=== PATIENT | male | born 1945 | race Caucasian/White ===

== ENCOUNTER 2017-06-30 17:41 | Inpatient (IN) | payer OTHER, BC ==
[2017-06-30 18:06] VITALS: BMI 27.4
[2017-06-30] MEDS ORDERED: morphine CARPU-JECT 4 MG/1 ML DISP.SYRIN IVPUSH ONE (18:47)
--- NOTE | 2017-06-30 18:54 | PDOC ---
History of Present Illness <Jose Angel Smith - Last Filed: 06/30/17 20:11> - History of Present Illness Initial Comments: 06/30/17 19:57 The patient is a 72 year old male with a history of spelectomy, prostate resection who presents for evaluation of right sided flank pain and shoulder pain. The patient reports sudden onset of sharp right sided flank pain with radiation into the right shoulder earlier today. He reports some SOB secondary to pain with deep inspiration. He states that he recently had a laporoscopy to remove his prostate 1 week ago. He otherwise denies fevers, chills, chest pain , abdominal pain, nausea, vomiting, or changes with bowel movements. <Rudolph Morales - Last Filed: 06/30/17 23:20> - General Chief Complaint: Chest Pain Stated Complaint: CHEST PAIN Time Seen by Provider: 06/30/17 18:39 Past History <Jose Angel Smith - Last Filed: 06/30/17 20:11> - Past Medical History Anemia: No Asthma: No Cancer: No Cardiac Disorders: No Diabetes: No Disorders: No HTN: No - Surgical History Abdominal Surgery: Yes (Spleenectomy) GI Surgery: Yes (Spleentomy) - Suicide/Smoking/Psychosocial Hx Smoking Status: No Smoking History: Never smoked Have you smoked in the past 12 months: No Number of Cigarettes Smoked Daily: 0 Hx Alcohol Use: No Drug/Substance Use Hx: No Substance Use Type: None Hx Substance Use Treatment: No <CarmenRudolph - Last Filed: 06/30/17 23:20> - Past Medical History Allergies/Adverse Reactions: Allergies Allergy/AdvReac Type Severity Reaction Status Date / Time Penicillins Allergy Verified 06/30/17 18:02 Home Medications: Ambulatory Orders No Home Medications 0 dose .ROUTE UTDICT 01/29/12 Acetaminophen [Tylenol .Regular Strength -] 650 mg PO Q4H PRN #0 tablet Review of Systems - Review of Systems Comments:: 06/30/17 20:04 Constitutional: No fevers, chills, fatigue, malaise HEENT: No Rhinorrhea, nasal congestion, visual changes Cardiovascular: No chest pain, syncope, palpitations, lightheadedness Respiratory: SOB. No Cough, Hemoptysis, Gastrointestinal: No Abdominal pain, Nausea, Vomiting, Constipation, Diarrhea, Melena Genitourinary: No Dysuria, Frequency, Urgency, Hesitancy, Hematuria, Flank pain Musculoskeletal: Right sided flank pain and shoulder pain. No Myalgia, arthralgia Skin: No rashes, itching, bruising, pallor Neurologic: No Headache, Dizziness, Numbness, Weakness, or Tingling Psychiatric: No Hallucinations. No SI or HI <Rudolph Morales - Last Filed: 06/30/17 23:20> *Physical Exam - Vital Signs Last Vital Signs Temp Pulse Resp BP Pulse Ox 99.1 F 84 19 146/82 97 06/30/17 18:03 06/30/17 18:03 06/30/17 18:03 06/30/17 18:03 06/30/17 18:03 <Jose Angel Smith - Last Filed: 06/30/17 20:11> - Vital Signs Last Vital Signs Temp Pulse Resp BP Pulse Ox 99.1 F 84 19 146/82 97 06/30/17 18:03 06/30/17 18:03 06/30/17 18:03 06/30/17 18:03 06/30/17 18:03 - Physical Exam Comments: 06/30/17 20:06 General Appearance: Nourished. No Apparent Distress HEENT: EOMI, IBAN. No Pharyngeal Erythema, Tonsillar Exudate, Tonsillar Erythema Neck: No Cervical Lymphadenopathy Respiratory/Chest: Tenderness to light touch along the skin of the right flank. Lungs Clear, Normal Breath Sounds. No Crackles, Rales, Rhonchi, Wheezing Cardiovascular: Regular Rhythm, Regular Rate. No Murmur, Gallops, Rubs Gastrointestinal/Abdominal: Normal Bowel Sounds. Well healing laperoscopy surgical scars. No Guarding, Rebound, Tenderness Musculoskeletal: No CVA Tenderness Extremity: Normal Capillary Refill Integumentary: Normal Color, Dry, Warm Neurologic: Fully Oriented, Alert, Normal Mood/Affect, Normal Response, <Rudolph Morales - Last Filed: 06/30/17 23:20> Heart Score/ECG Review #1 ECG reviewed & interpreted by me at: 21:29 General ECG Interpretation: Sinus Rhythm, Normal Rate, Normal Intervals, No acute ischemic changes <Rudolph Morales - Last Filed: 06/30/17 23:20> ED Treatment Course - LABORATORY CBC & Chemistry Diagram: 02/16/18 19:05 06/30/17 19:05 <SarahJose Angel - Last Filed: 06/30/17 20:11> - LABORATORY CBC & Chemistry Diagram: 06/30/17 19:05 06/30/17 19:05 <Rudolph Morales - Last Filed: 06/30/17 23:20> Medical Decision Making - Medical Decision Making 06/30/17 20:09 The patient is a 72 year old male with a history of spelectomy, prostate resection who presents for evaluation of right sided flank pain and shoulder pain. Differential includes but is not limited to: Cholecystits, PE, Pneumonia , Shingles, Musculoskeletal, infectious, metabolic derangement. Given the patient's recent surgery, the patient is at a high risk for PE and we will obtain a cbc, cmp, troponin, chest plain film, CTA of the chest to evaluate further. We will continue to monitor and reassess. 06/30/17 23:18 CBC, cmp, troponin, chest plain film are unremarkable. CTA of the chest demonstrates a small segmental PE in the right lower lobe as read by our radiologist. We will obtain a dvt US of the patient's lower extremities and start the patient on lovenox. The patient will require admission for further management. We discussed the case with the hospitalist team who accepted the patient for admission. <Rudolph Morales - Last Filed: 06/30/17 23:20> *DC/Admit/Observation/Transfer <SarahJose Angel - Last Filed: 06/30/17 20:11> - Discharge Dispostion Admit: Yes <Rudolph Morales - Last Filed: 06/30/17 23:20> Diagnosis at time of Disposition: Pulmonary embolism Qualifiers: Pulmonary embolism type: other Chronicity: acute Acute cor pulmonale presence: without acute cor pulmonale Qualified Code(s): I26.99 - Other pulmonary embolism without acute cor pulmonale - Discharge Dispostion Condition at time of disposition: Guarded - Referrals Referrals: Nahum Khan MD [Primary Care Provider] -
[2017-06-30 19:14] LABS: BASO % 0.5 % (0-2.0); EOS % 2.2 % (0-4.5); HEMATOCRIT 38.2 % (35.4-49); LYMPH % 11.5 % (8-40); MCH 31.7 pg (25.7-33.7); MCHC 34.2 g/dl (32.0-35.9); MEAN CELL VOLUME 92.7 fl (80-96); MEAN PLT VOLUME 8.3 fl (7.5-11.1); NEUT % 79.8 % (42.8-82.8); PLATELET COUNT 181 K/MM3 (134-434); RBC 4.12 M/mm3 (4.00-5.60); RDW 12.8 % (11.9-15.9); WHITE BLOOD COUNT 8.3 K/mm3 (4.0-10.0)
[2017-06-30] MEDS ORDERED: MORPHINE SULFATE 10 MG/1 ML *VIAL ONE (19:17)
[2017-06-30 19:44] LABS: ALBUMIN 2.4 g/dl (3.4-5.0); ANION GAP 10 (8-16); BILIRUBIN,TOTAL 0.5 mg/dL (0.2-1.0); BLOOD UREA NITROGEN 17 mg/dL (7-18); CHLORIDE 119 mmol/L (98-107); CO2 19 mmol/L (21-32); CREATININE 0.5 mg/dL (0.7-1.3); GLUCOSE,RANDOM 74 mg/dL (74-106); LIPASE 158 U/L (73-393); SGPT/ALT 19 U/L (12-78); SODIUM 148 mmol/L (136-145); TOT PROT 4.8 g/dl (6.4-8.2)
[2017-06-30 19:46] LABS: ALK PHOS 54 U/L (45-117)
[2017-06-30 19:51] LABS: CALCIUM 5.8 mg/dL (8.5-10.1); POTASSIUM 3.4 mmol/L (3.5-5.1)
[2017-06-30 19:52] LABS: SGOT/AST 20 U/L (15-37)
--- NOTE | 2017-06-30 20:10 | PDOC ---
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 Pain worse with deep inspiration. He denies any modifying factors. He notes that his shortness of breath is associated with his pain. The patient denies chest pain, headache and dizziness. Denies fever, chills, nausea, vomit, diarrhea and constipation. Denies dysuria, frequency, urgency and hematuria. Allergies: Penicillin Past surgical history: Splenectomy Social history: No alcohol, tobacco ot drug use reported - Physicial Exam PE: 06/30/17 21:47 "GENERAL: Awake, alert, and fully oriented, in no acute distress HEAD: No signs of trauma EYES: PERRLA, EOMI, sclera anicteric, conjunctiva clear ENT: Auricles normal inspection, hearing grossly normal, nares patent, oropharynx clear without exudates. Moist mucosa NECK: Normal ROM, supple, no lymphadenopathy, JVD, or masses LUNGS: Breath sounds equal, clear to auscultation bilaterally. No wheezes, and no crackles HEART: Regular rate and rhythm, normal S1 and S2, no murmurs, rubs or gallops ABDOMEN: Soft, nontender, normoactive bowel sounds. No guarding, no rebound. No masses EXTREMITIES: Normal range of motion, no edema. No clubbing or cyanosis. No cords, erythema, or tenderness BACK: No midline spinal tenderness in cervical/thoracic/lumbar region NEUROLOGICAL: Normal speech, cranial nerves intact, negative pronator drift, 5/ 5 strength in all 4 extremities, normal sensation to light touch in all 4 extremities, normal cerebellar exam, normal gait, normal reflexes and tone MSK: exquisite ttp along R lower ribs to light touch, no rash visible over tender area SKIN: Warm, Dry, normal turgor, no rashes or lesions noted. " <Asim Knott - Last Filed: 06/30/17 21:47> - Resident Resident Name: Rudolph Morales - ED Attending Attestation I have performed the following: I have examined & evaluated the patient, The case was reviewed & discussed with the resident, I agree w/resident's findings & plan, Exceptions are as noted - Medical Decision Making 06/30/17 19:10 72-year-old male with multiple medical problems including prostate cancer status post recent prostatectomy presents the emergency department with sudden onset right upper back pain radiating to the right shoulder that is pleuritic in nature. EKG nonischemic. Vitals are unremarkable. Exam with reproducible back pain. Patient is high risk for pulmonary embolism and thus we'll obtain labs including CMP and obtain a CTA of the chest. We'll also obtain cardiac enzymes and likely admit. 06/30/17 22:39 CTA with subsegmental pulmonary embolism on the right. CT scan of the head obtained to rule out metastatic disease prior to anticoagulation. Pt is HDS. Patient has been admitted to the hospitalist for further management. Signout given to Dr. Montoya. Case discussed in detail with admitting physician including history, physical exam and ancillary studies. Admitting physician has assumed care for the patient, will follow all pending diagnostics and will complete the evaluation and treatment. <Jose Angel Smith - Last Filed: 07/01/17 02:40>
[2017-06-30] MEDS ORDERED: ENOXAPARIN NA (PORCINE) 80 MG/0.8 ML DISP.SYRIN SQ SCH (22:30)
[2017-06-30 22:34] LABS: URINE APPEARANCE SLCLOUDY; URINE BILIRUBIN NEGATIVE (NEGATIVE); URINE BLOOD 3+ (NEGATIVE); URINE COLOR YELLOW; URINE GLUCOSE (UA) NEGATIVE (NEGATIVE); URINE KETONE 1+ (NEGATIVE); URINE NITRITE NEGATIVE (NEGATIVE); URINE UROBILINOGEN NEGATIVE mg/dL (0.2-1.0)
[2017-06-30 22:35] LABS: URINE LEUK ESTERASE 3+ (NEGATIVE); URINE PROTEIN 1+ (NEGATIVE)
[2017-06-30 22:38] LABS: EPI CELLS RARE /HPF (FEW)
[2017-06-30 22:39] LABS: URINE CRYSTALS FEW /hpf (NONE SEEN); URINE HYALINE CAST 5 /lpf
[2017-06-30 22:41] LABS: GRANULAR CASTS 3 /lpf; URINE MUCUS MANY
[2017-06-30] MEDS ORDERED: ENOXAPARIN NA (PORCINE) 80 MG/0.8 ML DISP.SYRIN SQ ONE (23:50)
[2017-07-01] MEDS: morphine CARPU-JECT 2 MG/1 ML DISP.SYRIN IVPUSH PRN ×2 (01:01→07:12)
[2017-07-01] MEDS ORDERED: CALCIUM CARBONATE 650 MG TABLET PO ONE (01:29)
[2017-07-01] MEDS ORDERED: SODIUM CHLORIDE 1,000 ML IV SCH (01:30)
[2017-07-01] MEDS ORDERED: POTASSIUM CHLORIDE TABS 20 MEQ TABLET.ER (FP) PO ONE ×2 (01:30→02:15)
--- NOTE | 2017-07-01 01:47 | HP ---
CHIEF COMPLAINT: back pain HISTORY OF PRESENT ILLNESS: 72 year old, Vietnamese speaking male with a history of recent prostate cancer diagnosis s/p prostatectomy 2 weeks ago done by an anterior abdominal approach presents to the hospital for pain in his flank since 5pm today. He states that the pain is located on the right side, mid-thoracic region mid axillary line and wraps around to the back. He states that it is 10/10 in severity and that it is worse on inhalation. He denies shortness of breath, but states that it is hard for him to take a deep breath due to pain. He states that a few days ago he had a sharp pain in his R groin that alleviated on its own. He states that he had a catheter to help him urinate just removed and that he has some mild dysuria at the end of his stream. Patient is not on any medications - but his urologist recently prescribed him ciprofloxacin and cialis, which he does not take. ER course was notable for: (1) Hypocalcemia (2) Hypernatremia (3) CTA -> R lower lobe medial segment pulmonary embolus Recent Travel: none PAST MEDICAL HISTORY: prostate CA PAST SURGICAL HISTORY: prostatectomy Social History: Smoking: none Alcohol: none Drugs: none Family History: Allergies Penicillins Allergy (Verified 06/30/17 18:02) HOME MEDICATIONS: Home Medications Medication Instructions Recorded No Home Medications 0 dose .ROUTE UTDICT 01/29/12 Acetaminophen [Tylenol .Regular 650 mg PO Q4H PRN #0 tablet 01/30/12 Strength -] REVIEW OF SYSTEMS CONSTITUTIONAL: Absent: fever, chills, diaphoresis, generalized weakness, malaise, loss of appetite, weight change HEENT: Absent: rhinorrhea, nasal congestion, throat pain, throat swelling, difficulty swallowing, mouth swelling, ear pain, eye pain, visual changes CARDIOVASCULAR: Absent: chest pain, syncope, palpitations, irregular heart rate, lightheadedness , peripheral edema RESPIRATORY: Absent: cough, shortness of breath, dyspnea with exertion, orthopnea, wheezing, stridor, hemoptysis GASTROINTESTINAL: abdominal distension Absent: abdominal pain, , nausea, vomiting, diarrhea, constipation, melena, hematochezia GENITOURINARY: dysuria Absent: frequency, urgency, hesitancy, hematuria, flank pain, genital pain MUSCULOSKELETAL: back pain, Absent: myalgia, arthralgia, joint swelling, neck pain SKIN: Absent: rash, itching, pallor HEMATOLOGIC/IMMUNOLOGIC: Absent: easy bleeding, easy bruising, lymphadenopathy, frequent infections ENDOCRINE: Absent: unexplained weight gain, unexplained weight loss, heat intolerance, cold intolerance NEUROLOGIC: Absent: headache, focal weakness or paresthesias, dizziness, unsteady gait, seizure, mental status changes, bladder or bowel incontinence PSYCHIATRIC: Absent: anxiety, depression, suicidal or homicidal ideation, hallucinations. PHYSICAL EXAMINATION Vital Signs - 24 hr 06/30/17 18:03 Temperature 99.1 F Pulse Rate 84 Respiratory 19 Rate Blood Pressure 146/82 O2 Sat by Pulse 97 Oximetry (%) GENERAL: Awake, alert, and fully oriented, in no acute distress. HEAD: Normal with no signs of trauma. EYES: Pupils equal, round and reactive to light, extraocular movements intact, sclera anicteric, conjunctiva clear. No lid lag. EARS, NOSE, THROAT: Ears normal, nares patent, oropharynx clear without exudates. Moist mucous membranes. NECK: Normal range of motion, supple without lymphadenopathy, JVD, or masses. LUNGS: Breath sounds equal, clear to auscultation bilaterally. No wheezes, and no crackles. No accessory muscle use. HEART: Regular rate and rhythm, normal S1 and S2 without murmur, rub or gallop. ABDOMEN: distended and firm, fresh laparoscopy scars noted on abdomen, some serosanguinous drainage emerging from wounds, nontender, normoactive bowel sounds, no guarding, no rebound, no masses. No hepatomegaly or splenomegaly. MUSCULOSKELETAL: Normal range of motion at all joints. No bony deformities or tenderness. No CVA tenderness. Tenderness to palpation of the R posterior chest wall around the T6-7 region on the R. UPPER EXTREMITIES: 2+ pulses, warm, well-perfused. No cyanosis. No clubbing. No peripheral edema. LOWER EXTREMITIES: 2+ pulses, warm, well-perfused. No calf tenderness. No peripheral edema. NEUROLOGICAL: Cranial nerves II-XII intact. Normal speech. Normal gait. PSYCHIATRIC: Cooperative. Good eye contact. Appropriate mood and affect. SKIN: Warm, dry, normal turgor, no rashes or lesions noted, normal capillary refill. Laboratory Results - last 24 hr 06/30/17 06/30/17 06/30/17 19:05 19:05 22:28 WBC 8.3 D RBC 4.12 Hgb 13.0 D Hct 38.2 MCV 92.7 MCH 31.7 MCHC 34.2 RDW 12.8 Plt Count 181 D MPV 8.3 Neutrophils % 79.8 Lymphocytes % 11.5 D Monocytes % 6.0 Eosinophils % 2.2 Basophils % 0.5 Sodium 148 H Potassium 3.4 L D Chloride 119 H D Carbon Dioxide 19 L D Anion Gap 10 BUN 17 D Creatinine 0.5 L D Creat Clearance w eGFR > 60 Random Glucose 74 D Calcium 5.8 L* D Total Bilirubin 0.5 AST 20 ALT 19 D Alkaline Phosphatase 54 D Creatine Kinase 55 Troponin I < 0.02 Total Protein 4.8 L D Albumin 2.4 L D Lipase 158 Urine Color Yellow Urine Appearance Slcloudy Urine pH 5.0 Ur Specific [place] > 1.060 H Urine Protein 1+ H Urine Glucose (UA) Negative Urine Ketones 1+ H Urine Blood 3+ H Urine Nitrite Negative Urine Bilirubin Negative Urine Urobilinogen Negative Ur Leukocyte Esterase 3+ H Urine WBC (Auto) 174 Urine RBC (Auto) 91 Ur Epithelial Cells Rare Urine Crystals Few Hyaline Casts 5 Granular Casts 3 Urine Mucus Many Home Medication List Medication Instructions Recorded Confirmed Type No Home Medications 0 dose .ROUTE UTDICT 01/29/12 06/30/17 History Active Medications Generic Name Dose Route Start Last Admin Trade Name Freq PRN Reason Stop Dose Admin Enoxaparin Sodium 70 mg 07/01/17 10:00 Lovenox - SQ BID JUSTICE Sodium Chloride 1,000 mls @ 100 mls/hr 07/01/17 01:30 07/01/17 02:30 Normal Saline - IV 07/01/17 11:29 100 mls/hr ASDIR JUSTICE Administration Morphine Sulfate 2 mg 07/01/17 00:46 07/01/17 01:01 Morphine Injection - IVPUSH 2 mg Q6H PRN Administration PAIN LEVEL 7 - 10 IMAGING: CTA (admission, 06/30): A subsegmental embolus is seen within the medial basal segment of the right lower lobe. Bibasilar opacities are noted which may be on the basis of atelectasis and/or infiltrates. 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 CT head (06/30): There is no obvious CT evidence of neoplastic disease. If there is ongoing clinical concern additional evaluation utilizing MRI or CT may performed ( without and with contrast). Lower Extremity Doppler: prelimary read did not find any acute DVT - will recheck final ASSESSMENT/PLAN: 72 year old male with a past medical history of prostate CA s/p prostatectomy presented to the hospital with acute onset posterior, pleuritic, chest wall pain 2/2 pulmonary embolus #Pulmonary Embolism: patient has multiple risk factors, including recent abdominal surgery for prostate resection, neoplastic disease, and immobility -Positive CTA for pulmonary embolus in the medial basal R lower lobe -ED gave lovenox 80 subQ -continue lovenox 70mg subQ BID - will likely need prolonged anticoagulation for several months -admit to telemetry - cardiac catheterization technologist -O2 sat monitoring -2L nasal cannula as needed for shortness of breath -pain control with morphine 2mg Q6h -cards consult appreciated Dr. Hardy -echocardiogram ordered to assess R heart strain -will also check respiratory virus panel #Hypernatremia: free water deficit calculated to be 2L -give IVF NS @ 100cc/hr for 10 hours #Hypokalemia: replete with 40mEq potassium #Hypocalcemia: corrected calcium 7.1 - replete potassium #Prostate CA: watch for urine output -patient does not currently have a perez -likely dirty UA -mild dysuria likely 2/2 previous perez insertion (which lasted 2 weeks) -keep monitoring dysuria/labs -no brain mets on CT scan #FEN -NS @ 100cc/hr for 10 hours, then reassess fluid status after AM labs -monitor BMP in AM and replete accordingly -regular diet #Prophylaxis -pt is on lovenox #Disposition -Admit to telemetry Visit type - Emergency Visit Emergency Visit: Yes ED Registration Date: 06/30/17 Care time: The patient presented to the Emergency Department on the above date and was hospitalized for further evaluation of their emergent condition. - New Patient This patient is new to me today: Yes Date on this admission: 07/01/17 - Critical Care Critical Care patient: No
--- NOTE | 2017-07-01 03:49 | PN ---
Teaching Attending Note Name of Resident: Earle Carlisle ATTENDING PHYSICIAN STATEMENT I saw and evaluated the patient. Chart, data, imaging reviewed I reviewed the resident's note and discussed the case with the resident. I agree with the resident's findings and plan as documented. SUBJECTIVE: 72 year old male with a history of recently diagnosed prostate cancer, s/p prostate resection 2 wks ago who presented for right sided flank pain and shoulder pain which started on 06/30 at 5pm. Pain started suddenly and was associated with right sided pleuritic chest pain with inspiration. Denied any cough or fevers. OBJECTIVE: Last Vital Signs Temp Pulse Resp BP Pulse Ox 99.1 F 84 19 146/82 97 06/30/17 18:03 06/30/17 18:03 06/30/17 18:03 06/30/17 18:03 06/30/17 18:03 General- NAD HEENT- NC, moist oral mucosa Neck -supple CV -s1+s2+ Chest- cta b/l Abdomen - soft, nt, BS+ Ext- no edema noted Abnormal Lab Results 06/30/17 06/30/17 19:05 22:28 Sodium 148 H Potassium 3.4 L D Chloride 119 H D Carbon Dioxide 19 L D Creatinine 0.5 L D Calcium 5.8 L* D Total Protein 4.8 L D Albumin 2.4 L D Ur Specific [place] > 1.060 H Urine Protein 1+ H Urine Ketones 1+ H Urine Blood 3+ H Ur Leukocyte Esterase 3+ H CTA (admission, 06/30): A subsegmental embolus is seen within the medial basal segment of the right lower lobe. Bibasilar opacities are noted which may be on the basis of atelectasis and/or infiltrates. A 1.2 cm pancreatic body cyst is noted which appears mildly increased in comparison to an abdomen MRI study of (previously measuring 0.9 cm) CT head (06/30): There is no obvious CT evidence of neoplastic disease. Lower ext DVT- negative for DVT ASSESSMENT AND PLAN: #Subsegmental PE in medial basal segment of right lower lobe of lung. Pt otherwise clinically stable, not tachycardic and not hypoxic. Lower ext duplex negative for dvt. Patient is at high risk for PE due to recent prostate ca diagnosis and recent surgery. -admit to telemetry -Lovenox 70mg sc bid -Instruct patient how to administer Lovenox dvt ppx- already on Lovenox continue home meds for chronic medical problems #Diet -low salt, low fat diet
[2017-07-01 07:07] LABS: BASO % 0.8 % (0-2.0); HEMATOCRIT 34.5 % (35.4-49); HEMOGLOBIN 11.9 GM/dL (11.7-16.9); LYMPH % 16.7 % (8-40); MCH 31.9 pg (25.7-33.7); MCHC 34.5 g/dl (32.0-35.9); MEAN CELL VOLUME 92.5 fl (80-96); MEAN PLT VOLUME 8.3 fl (7.5-11.1); MONO % 8.8 % (3.8-10.2); NEUT % 71.7 % (42.8-82.8); PLATELET COUNT 157 K/MM3 (134-434); RBC 3.73 M/mm3 (4.00-5.60); RDW 12.7 % (11.9-15.9); WHITE BLOOD COUNT 6.5 K/mm3 (4.0-10.0)
[2017-07-01 07:21] LABS: ANION GAP 7 (8-16); BLOOD UREA NITROGEN 20 mg/dL (7-18); CALCIUM 8.6 mg/dL (8.5-10.1); CHLORIDE 105 mmol/L (98-107); CO2 26 mmol/L (21-32); CREATININE 0.7 mg/dL (0.7-1.3); GLUCOSE,RANDOM 93 mg/dL (74-106); MAGNESIUM 1.9 mg/dL (1.8-2.4); PHOSPHOROUS 3.1 mg/dL (2.5-4.9); POTASSIUM 4.6 mmol/L (3.5-5.1); SODIUM 138 mmol/L (136-145)
[2017-07-01] MEDS: ENOXAPARIN NA (PORCINE) 80 MG/0.8 ML DISP.SYRIN SQ SCH ×2 (09:20→21:10)
[2017-07-01] MEDS ORDERED: MORPHINE SULFATE 10 MG/1 ML *VIAL IVPUSH PRN (09:33)
--- NOTE | 2017-07-01 09:47 | CON.CARD ---
Consult Consult Specialty:: Cardiology Referred by:: Hospitalist Reason for Consultation:: Pulmonary embolism - History of Present Illness Chief Complaint: R back pain, pleuritic R sided chest pain History of Present Illness: 72 year old man with a h/o prostate Ca s/p prostatectomy 2 weeks ago admitted with pleuritic R sided back and chest pain with associated difficulty taking deep breaths since yesterday and found to have a R sided pulmonary embolism. Pt seen and examined in the ER with son at bedside. pt c/o continued R back/axilla pain with difficulty taking deep breaths. denies any other chest pain. no sob other than difficulty taking deep breaths. no palpitations, lightheadedness, dizziness, syncope or near syncope. no pnd, orthopnea or LE edema. - History Source History Provided By: Patient, Family Member Limitations to Obtaining History: Language Barrier - Past Medical History Heme/Onc: Yes: Cancer - Past Surgical History Past Surgical History: Yes: Prostatectomy - Alcohol/Substance Use Hx Alcohol Use: No - Smoking History Smoking history: Never smoked Have you smoked in the past 12 months: No Aproximately how many cigarettes per day: 0 - Social History ADL: Independent History of Recent Travel: No Home Medications - Allergies Allergies/Adverse Reactions: Allergies Allergy/AdvReac Type Severity Reaction Status Date / Time Penicillins Allergy Verified 06/30/17 18:02 - Home Medications Home Medications: Ambulatory Orders No Home Medications 0 dose .ROUTE UTDICT 01/29/12 Acetaminophen [Tylenol .Regular Strength -] 650 mg PO Q4H PRN #0 tablet Ciprofloxacin [Cipro (Restricted To Id)] 500 mg PO Q12H 07/01/17 Tadalafil [Cialis] 5 mg PO DAILY 07/01/17 Family Disease History - Family Disease History Family History: Denies Review of Systems - Review of Systems Constitutional: denies: No Symptoms, Chills, Diaphoresis, Fever, Lethargy, Loss of Appetite, Malaise, Night Sweats, Unintentional Wgt. Loss, Weakness, Other Eyes: denies: No Symptoms, Blind Spots, Blurred Vision, Double Vision, Eye Pain , Floaters, Photophobia, Recent Change in Vision, Other HENT: denies: No Symptoms, Difficult Swallowing, Ear Discharge, Ear Pain, Epistaxis, Gingival Bleeding, Hearing Loss, Mouth Swelling, Nasal Congestion, Ocular Prosthesis, Throat Pain, Toothache, Ringing in Ears, Other Neck: denies: No Symptoms, Decreased ROM, Lumps, Pain on Movement, Stiffness, Swollen Glands, Tenderness, Other Cardiovascular: reports: Chest Pain. denies: No Symptoms, Edema, Palpitations, Shortness of Breath, Other Respiratory: denies: No Symptoms, Cough, Exercise Intolerance, Hemoptysis, Orthopnea, PND, Snoring, SOB, SOB on Exertion, Wheezing, Other Gastrointestinal: denies: No Symptoms, Abdominal Pain, Bloating, Constipation, Diarrhea, Dysphagia, Indigestion, Melena, Nausea, Rectal Bleeding, Vomiting, Vomiting Blood, Other Genitourinary: denies: No Symptoms, Burning, Discharge, Dysuria, Flank Pain, Frequency, Hematuria, Incontinence, Lesions, Menses, Pain, Testicular Mass, Testicular Pain, Testicular Swelling, Urgency, Vaginal Bleeding, Other Breasts: denies: No Symptoms Reported, See HPI, Breast Implants, Discharge from Nipple, Lumps, Pain, Skin Changes, Other Musculoskeletal: reports: Back Pain. denies: No Symptoms, Crepitus, Decreased ROM, Extremity Pain, Joint Pain, Joint Swelling, Muscle Pain, Muscle Cramps, Muscle Weakness, Other Integumentary: denies: No Symptoms, Blister, Bruising, Change in Color, Eczema, Erythema, Incision, Lesions, Lump, Pallor, Pruritis, Rash, Wound, Other Neurological: denies: No Symptoms, Change in LOC, Change in Speech, Confusion, Dizziness, Headache, Incoordination, Numbness, Parasthesia, Pre-Existing Deficit , Seizure, Syncope, Tremors, Unsteady Gait, Weakness, Other Endocrine: denies: No Symptoms, Excessive Sweating, Flushing, Increased Hunger, Increased Thirst, Intolerance to Cold, Intolerance to Heat, Unexplained Weight Gain, Unexplained Weight Loss, Other Hematology/Lymphatic: denies: No Symptoms, Easily Bruised, Excessive Bleeding, Swollen Glands, Other Psychiatric: denies: No Symptoms, Altered Sleep Pattern, Anxiety, Depression, Hallucinations, Panic, Paranoia, Suicidal, Other - Risk Factors Known Risk Factors: Yes: Age Vital Signs: Vital Signs Temperature 98.6 F 07/01/17 06:44 Pulse Rate 79 07/01/17 06:44 Respiratory Rate 18 07/01/17 06:44 Blood Pressure 109/75 07/01/17 06:44 O2 Sat by Pulse Oximetry (%) 95 07/01/17 06:44 Constitutional: Yes: Well Nourished, Mild Distress Eyes: Yes: WNL, Conjunctiva Clear, EOM Intact, PERRL HENT: Yes: WNL, Atraumatic, Normocephalic Neck: Yes: WNL, Supple, Trachea Midline Respiratory: Yes: Regular, CTA Bilaterally, Other (pleuritic chest pain, difficulty taking deep breaths due to pain). No: Rales, Rhonchi, Wheezes Gastrointestinal: Yes: WNL, Normal Bowel Sounds, Soft. No: Distention, Tenderness Renal/: Yes: WNL Cardiovascular: Yes: WNL, Regular Rate and Rhythm. No: Bradycardia, Tachycardia , Pulse Irregular, Gallop, Rub, Varicosities JVD: No Carotid Bruit: No PMI: Non-Displaced Heart Sounds: Yes: S1, S2. No: Split S2, S3, S4, Clicks, Gallop, Rub, Bruit Murmur: No: Systolic Murmur, Diastolic Murmur Musculoskeletal: Yes: Back Pain Extremities: Yes: WNL Edema: No Peripheral Pulses WNL: Yes Peripheral Pulses: 2+ Left Doralis Pedis, 2+ Right Dorsalis Pedis Integumentary: Yes: WNL Neurological: Yes: Alert, Oriented Psychiatric: Yes: Alert, Oriented - Other Data Labs, Other Data: CBC, BMP 07/01/17 06:29 07/01/17 06:29 Troponin, BNP 06/30/17 19:05 Troponin I < 0.02 Troponin, BNP 06/30/17 19:05 Troponin I < 0.02 EKG-NSR 82bpm, poor R progression, LVH, NSST Imaging - Results Chest X-ray: Report Reviewed, Image Reviewed Cat Scan: Report Reviewed EKG: Report Reviewed, Image Reviewed Other: Report Reviewed, Image Reviewed Assessment/Plan 72 year old man with a h/o prostate Ca s/p prostatectomy 2 weeks ago admitted with pleuritic R sided back and chest pain with associated difficulty taking deep breaths since yesterday and found to have a R sided pulmonary embolism. Pt seen and examined in the ER with son at bedside. pt c/o continued R back/axilla pain with difficulty taking deep breaths. denies any other chest pain. no sob other than difficulty taking deep breaths. no palpitations, lightheadedness, dizziness, syncope or near syncope. no pnd, orthopnea or LE edema. Pulmonary embolism-in setting of prostate Ca -R sided subsegmental -Recc pulmonary consult -on full dose Lovenox currently with plan to transition to po AC -No significant EKG abnormalities, cardiac enzymes wnl, no clear evidence of R sided heart strain on CT chest, pt remains hemodynamically stable -no arrhythmias on tele, can cont tele for now if no arrhythmias in 24 hours from presentation can dc tele -check echo -pain control to assist breathing
--- NOTE | 2017-07-01 14:55 | CON.PULM ---
Consult Consult Specialty:: PULM/CCM Referred by:: JOHN Reason for Consultation:: PE - History of Present Illness Chief Complaint: Right sided CP History of Present Illness: 72 M, h/o prostate Ca s/p prostatectomy 2 weeks ago. Admitted via the ER due to right sided/posterior pleuritic type chest pain that worsens with taking a deep breath. Symptoms have been progressing over the past 24 hours. No hemoptysis. No previous personal or family history of VTE. CTA: Right medial basal segment PE. Bilateral pulmonary infiltrates. No DVT was noted on vascular evaluation. Patient denies palpitations, lightheadedness, dizziness, or syncope. - History Source History Provided By: Patient, Medical Record Limitations to Obtaining History: Poor Historian - Past Surgical History Past Surgical History: Yes: Prostatectomy - Alcohol/Substance Use Hx Alcohol Use: No - Smoking History Smoking history: Never smoked Have you smoked in the past 12 months: No Aproximately how many cigarettes per day: 0 - Social History ADL: Independent History of Recent Travel: No Home Medications - Allergies Allergies/Adverse Reactions: Allergies Allergy/AdvReac Type Severity Reaction Status Date / Time Penicillins Allergy Verified 06/30/17 18:02 - Home Medications Home Medications: Ambulatory Orders No Home Medications 0 dose .ROUTE UTDICT 01/29/12 Acetaminophen [Tylenol .Regular Strength -] 650 mg PO Q4H PRN #0 tablet Ciprofloxacin [Cipro (Restricted To Id)] 500 mg PO Q12H 07/01/17 Tadalafil [Cialis] 5 mg PO DAILY 07/01/17 Review of Systems - Review of Systems Constitutional: denies: Chills, Fever, Night Sweats Eyes: reports: No Symptoms HENT: reports: No Symptoms Neck: reports: No Symptoms Cardiovascular: reports: Chest Pain, Shortness of Breath. denies: Edema Respiratory: reports: Cough, SOB, SOB on Exertion. denies: Hemoptysis, Wheezing Gastrointestinal: reports: No Symptoms Genitourinary: reports: No Symptoms Breasts: reports: No Symptoms Reported Musculoskeletal: reports: No Symptoms Integumentary: reports: No Symptoms Neurological: reports: No Symptoms Endocrine: reports: No Symptoms Hematology/Lymphatic: reports: No Symptoms Psychiatric: reports: No Symptoms Physical Exam Vital Sings: Vital Signs Temperature 98.3 F 07/01/17 10:00 Pulse Rate 76 07/01/17 10:09 Respiratory Rate 18 07/01/17 10:00 Blood Pressure 125/73 07/01/17 10:09 O2 Sat by Pulse Oximetry (%) 96 07/01/17 10:09 Constitutional: Yes: No Distress, Anxious Eyes: Yes: Conjunctiva Clear, EOM Intact HENT: Yes: Atraumatic, Normocephalic Neck: Yes: Supple, Trachea Midline Cardiovascular: Yes: Regular Rate and Rhythm Respiratory: Yes: Cough, Diminished, On Nasal O2. No: Accessory Muscle Use, Rales, Rhonchi, Stridor, Tachypnea, Wheezes ...Inspection: Yes: WNL ...Clubbing: No Gastrointestinal: Yes: Normal Bowel Sounds, Soft Renal/: Yes: WNL Musculoskeletal: Yes: WNL Edema: No Peripheral Pulses WNL: Yes Integumentary: Yes: WNL Neurological: Yes: WNL, Alert, Oriented ...Motor Strength: WNL Psychiatric: Yes: WNL, Alert, Oriented Labs: CBC, BMP 07/01/17 06:29 07/01/17 06:29 Imaging - Results Chest X-ray: Report Reviewed, Image Reviewed Cat Scan: Report Reviewed, Image Reviewed Problem List - Problems (1) Pulmonary embolism Code(s): I26.99 - OTHER PULMONARY EMBOLISM WITHOUT ACUTE COR PULMONALE Qualifiers: Pulmonary embolism type: other Chronicity: acute Acute cor pulmonale presence: without acute cor pulmonale Qualified Code(s): I26.99 - Other pulmonary embolism without acute cor pulmonale (2) Prostate CA Code(s): C61 - MALIGNANT NEOPLASM OF PROSTATE (3) Atelectasis of both lungs Code(s): J98.11 - ATELECTASIS Assessment/Plan Lovenox BID Incentive Spirometry O2 as needed Would monitor off ABX for now: CT findings more consistent with atelectasis due to splinting ECHO Depending on ECHO findings, will make the decision about the indication for IR, at present hemodynamically stable Will follow Thank you. Dr López
[2017-07-01] MEDS ORDERED: ACETAMINOPHEN 1000 MG/100 ML VIAL (NON FORMULARY) IVPB PRN (15:02)
--- NOTE | 2017-07-01 22:10 | HOSP ---
Subjective - Review of Symptoms Events since last encounter: Patient is comfortable with no acute distress, no nausea or vomiting, no shortness of breath. at bedside Vital Signs Temperature 98.7 F 07/01/17 17:00 Pulse Rate 77 07/01/17 17:00 Respiratory Rate 20 07/01/17 17:00 Blood Pressure 135/79 07/01/17 17:00 O2 Sat by Pulse Oximetry (%) 96 07/01/17 10:09 GENERAL: Awake, alert, and fully oriented, in no acute distress. HEAD: Normal with no signs of trauma. EYES: Pupils equal, round and reactive to light, extraocular movements intact, sclera anicteric, conjunctiva clear. EARS, NOSE, THROAT: Ears normal, oropharynx clear without exudates. Moist mucous membranes. NECK: Normal range of motion, supple without lymphadenopathy, JVD, or masses. LUNGS: Breath sounds equal, clear to auscultation bilaterally. No wheezes, and no crackles. No accessory muscle use. HEART: Regular rate and rhythm, normal S1 and S2 without murmur, rub or gallop. ABDOMEN: soft, nontender, normoactive bowel sounds, no guarding, no rebound, no masses. No hepatomegaly or splenomegaly. EXTREMITIES: 2+ pulses, warm, well-perfused. No cyanosis. No clubbing. No peripheral edema. NEUROLOGICAL: Cranial nerves II-XII intact. Normal speech. Normal gait. PSYCHIATRIC: Cooperative. Good eye contact. Appropriate mood and affect. SKIN: Warm, dry, normal turgor, no rashes or lesions noted, normal capillary refill. CBCD WBC 6.5 K/mm3 (4.0-10.0) 07/01/17 06:29 RBC 3.73 M/mm3 (4.00-5.60) L 07/01/17 06:29 Hgb 11.9 GM/dL (11.7-16.9) 07/01/17 06:29 Hct 34.5 % (35.4-49) L 07/01/17 06:29 MCV 92.5 fl (80-96) 07/01/17 06:29 MCHC 34.5 g/dl (32.0-35.9) 07/01/17 06:29 RDW 12.7 % (11.9-15.9) 02/17/18 06:29 Plt Count 157 K/MM3 (134-434) 07/01/17 06:29 MPV 8.3 fl (7.5-11.1) 07/01/17 06:29 CMP Sodium 138 mmol/L (136-145) 07/01/17 06:29 Potassium 4.6 mmol/L (3.5-5.1) D 07/01/17 06:29 Chloride 105 mmol/L (98-107) D 07/01/17 06:29 Carbon Dioxide 26 mmol/L (21-32) D 07/01/17 06:29 Anion Gap 7 (8-16) L 07/01/17 06:29 BUN 20 mg/dL (7-18) H 07/01/17 06:29 Creatinine 0.7 mg/dL (0.7-1.3) D 07/01/17 06:29 Creat Clearance w eGFR > 60 (>60) 06/30/17 19:05 Random Glucose 93 mg/dL (74-106) D 07/01/17 06:29 Calcium 8.6 mg/dL (8.5-10.1) D 07/01/17 06:29 Total Bilirubin 0.5 mg/dL (0.2-1.0) 06/30/17 19:05 AST 20 U/L (15-37) 06/30/17 19:05 ALT 19 U/L (12-78) D 06/30/17 19:05 Alkaline Phosphatase 54 U/L (45-117) D 06/30/17 19:05 Total Protein 4.8 g/dl (6.4-8.2) L D 06/30/17 19:05 Albumin 2.4 g/dl (3.4-5.0) L D 06/30/17 19:05 CARDIAC ENZYMES Creatine Kinase 55 IU/L (39-308) 06/30/17 19:05 Troponin I < 0.02 ng/ml (0.00-0.05) 06/30/17 19:05 Current Medications Generic Name Dose Route Start Last Admin Trade Name Freq PRN Reason Stop Dose Admin Enoxaparin Sodium 70 mg 07/01/17 10:00 07/01/17 21:10 Lovenox - SQ 70 mg BID [facility] Administration Levofloxacin 500 mg 07/01/17 14:30 07/01/17 15:00 Levaquin - PO 500 mg DAILY@0600 [facility] Administration Morphine Sulfate 2 mg 07/01/17 09:33 07/01/17 16:32 Morphine Injection - IVPUSH 2 mg Q3H PRN Administration PAIN LEVEL 7 - 10 Home Medications Medication Instructions Recorded No Home Medications 0 dose .ROUTE UTDICT 01/29/12 Acetaminophen [Tylenol .Regular 650 mg PO Q4H PRN #0 tablet 01/30/12 Strength -] Ciprofloxacin [Cipro (Restricted 500 mg PO Q12H 07/01/17 To Id)] Tadalafil [Cialis] 5 mg PO DAILY 07/01/17 CTA (admission, 06/30): A subsegmental embolus is seen within the medial basal segment of the right lower lobe. Bibasilar opacities are noted which may be on the basis of atelectasis and/or infiltrates. 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 CT head (06/30): There is no obvious CT evidence of neoplastic disease. If there is ongoing clinical concern additional evaluation utilizing MRI or CT may performed ( without and with contrast). Lower Extremity Doppler: no acute DVT ASSESSMENT/PLAN: Patient is a 72 year old male with a past medical history of prostate CA s/p prostatectomy presented to the hospital with acute pleuretic chest pain and was found to have pulmonary embolus. #Acute Pulmonary Embolism most likely provoked due to prostate CA: on Lovenox 70mg Bid #Acute hypernatremia:improved from 148--130 #Hypokalemia:repleted with 40mEq potassium #Hx of Prostate CA #DVT Px: lovenox Physical Examination Vital Signs: Vital Signs Temperature 98.7 F 07/01/17 17:00 Pulse Rate 77 07/01/17 17:00 Respiratory Rate 20 07/01/17 17:00 Blood Pressure 135/79 07/01/17 17:00 O2 Sat by Pulse Oximetry (%) 96 07/01/17 10:09 Labs: CBC, BMP 07/01/17 06:29 07/01/17 06:29
[2017-07-02] MEDS: ENOXAPARIN NA (PORCINE) 80 MG/0.8 ML DISP.SYRIN SQ SCH ×2 (09:30→21:16)
--- NOTE | 2017-07-02 11:11 | EKG ---
Test Reason : Blood Pressure : / mmHG Vent. Rate : 082 BPM Atrial Rate : 082 BPM P-R Int : 182 ms QRS Dur : 082 ms QT Int : 370 ms P-R-T Axes : 052 -08 052 degrees QTc Int : 432 ms POOR DATA QUALITY, INTERPRETATION MAY BE ADVERSELY AFFECTED NORMAL SINUS RHYTHM MINIMAL VOLTAGE CRITERIA FOR LVH, MAY BE NORMAL VARIANT BORDERLINE ECG WHEN COMPARED WITH ECG OF 30-JAN-2012 08:53, LA INTERVAL HAS DECREASED Confirmed by VADIM CUBA MD ([id number]) on 07/02/2017 11:10:39 AM Referred By: Confirmed By:VADIM CUBA MD
--- NOTE | 2017-07-02 13:31 | PN ---
Progress Note (short form) - Note Progress Note: No acute events overnight. Still with some right sided/posterior pleuritic type chest pain, but better. No hemoptysis. Intake & Output 06/29/17 06/30/17 07/01/17 07/02/17 23:59 23:59 23:59 23:59 Intake Total 540 250 Balance 540 250 Weight 155 lb 155 lb Last Vital Signs Temp Pulse Resp BP Pulse Ox 77 F L 77 18 120/70 95 07/02/17 10:00 07/02/17 10:00 07/02/17 10:00 07/02/17 10:00 07/01/17 21:00 Active Medications Enoxaparin Sodium (Lovenox -) 70 mg SQ BID [facility] Last Admin: 07/02/17 09:30 Dose: 70 mg Levofloxacin (Levaquin -) 500 mg PO DAILY@0600 [facility] Last Admin: 07/02/17 06:18 Dose: 500 mg Morphine Sulfate (Morphine Injection -) 2 mg IVPUSH Q3H PRN PRN Reason: PAIN LEVEL 7 - 10 Last Admin: 07/01/17 16:32 Dose: 2 mg Constitutional: Yes: No Distress Eyes: Yes: Conjunctiva Clear, EOM Intact HENT: Yes: Atraumatic, Normocephalic Neck: Yes: Supple, Trachea Midline Cardiovascular: Yes: Regular Rate and Rhythm Respiratory: Yes: Cough, Diminished, On Nasal O2. No: Accessory Muscle Use, Rales, Rhonchi, Stridor, Tachypnea, Wheezes ...Inspection: Yes: WNL ...Clubbing: No Gastrointestinal: Yes: Normal Bowel Sounds, Soft Renal/: Yes: WNL Musculoskeletal: Yes: WNL Edema: No Peripheral Pulses WNL: Yes Integumentary: Yes: WNL Neurological: Yes: WNL, Alert, Oriented ...Motor Strength: WNL Psychiatric: Yes: WNL, Alert, Oriented Labs: Problem List - Problems (1) Pulmonary embolism Code(s): I26.99 - OTHER PULMONARY EMBOLISM WITHOUT ACUTE COR PULMONALE Qualifiers: Pulmonary embolism type: other Chronicity: acute Acute cor pulmonale presence: without acute cor pulmonale Qualified Code(s): I26.99 - Other pulmonary embolism without acute cor pulmonale (2) Prostate CA Code(s): C61 - MALIGNANT NEOPLASM OF PROSTATE (3) Atelectasis of both lungs Code(s): J98.11 - ATELECTASIS Assessment/Plan Lovenox BID : (? eventual transition to NOAC) Incentive Spirometry O2 as needed Consider to monitor off ABX for now: CT findings more consistent with atelectasis due to splinting ECHO Depending on ECHO findings, will make the decision about the indication for IR, at present hemodynamically stable Dr Lpóez Problem List - Problems (1) Pulmonary embolism Code(s): I26.99 - OTHER PULMONARY EMBOLISM WITHOUT ACUTE COR PULMONALE Qualifiers: Pulmonary embolism type: other Chronicity: acute Acute cor pulmonale presence: without acute cor pulmonale Qualified Code(s): I26.99 - Other pulmonary embolism without acute cor pulmonale (2) Prostate CA Code(s): C61 - MALIGNANT NEOPLASM OF PROSTATE (3) Atelectasis of both lungs Code(s): J98.11 - ATELECTASIS
--- NOTE | 2017-07-02 13:36 | PN ---
Progress Note, Physician History of Present Illness: seen and examined today in nad. daughter and at bedside. no overnight events. chest pain is improved. no sob. - Current Medication List Current Medications: Active Medications Enoxaparin Sodium (Lovenox -) 70 mg SQ BID [facility] Last Admin: 07/02/17 09:30 Dose: 70 mg Levofloxacin (Levaquin -) 500 mg PO DAILY@0600 [facility] Last Admin: 07/02/17 06:18 Dose: 500 mg Morphine Sulfate (Morphine Injection -) 2 mg IVPUSH Q3H PRN PRN Reason: PAIN LEVEL 7 - 10 Last Admin: 07/01/17 16:32 Dose: 2 mg - Objective Vital Signs: Vital Signs Temperature 77 F L 07/02/17 10:00 Pulse Rate 77 07/02/17 10:00 Respiratory Rate 18 07/02/17 10:00 Blood Pressure 120/70 07/02/17 10:00 O2 Sat by Pulse Oximetry (%) 95 07/01/17 21:00 Constitutional: Yes: Well Nourished, No Distress, Calm Eyes: Yes: WNL, Conjunctiva Clear, EOM Intact, PERRL HENT: Yes: WNL, Atraumatic, Normocephalic Neck: Yes: WNL, Supple, Trachea Midline Cardiovascular: Yes: Regular Rate and Rhythm, S1, S2. No: Bradycardia, Tachycardia, Pulse Irregular, Bruit, JVD, Gallop, Murmur, Rub, S3, S4, Varicosities Respiratory: Yes: WNL, Regular, CTA Bilaterally. No: Rales, Rhonchi, Wheezes Gastrointestinal: Yes: WNL, Normal Bowel Sounds, Soft. No: Distention, Tenderness Musculoskeletal: Yes: WNL Extremities: Yes: WNL Edema: No Peripheral Pulses WNL: Yes Peripheral Pulses: Left Doralis Pedis: 2+, Right Dorsalis Pedis: 2+ Integumentary: Yes: WNL Neurological: Yes: WNL, Alert, Oriented, Cran Nerves II-XII Intact ...Motor Strength: WNL Psychiatric: Yes: WNL, Alert, Oriented Labs: CBC, BMP 07/01/17 06:29 07/01/17 06:29 - ....Imaging Chest X-ray: Report Reviewed, Image Reviewed EKG: Report Reviewed, Image Reviewed Other: Report Reviewed, Image Reviewed (tele-NSR, APCs, no sig arrhythmias) Assessment/Plan 72 year old man with a h/o prostate Ca s/p prostatectomy 2 weeks ago admitted with pleuritic R sided back and chest pain with associated difficulty taking deep breaths since yesterday and found to have a R sided pulmonary embolism. Pulmonary embolism-in setting of prostate Ca-R sided subsegmental -remains hemodynamically stable, no arrhythmias on tele -ok to dc tele at this point -check echo to confirm no RV dilatation or dysfunction -on full dose Lovenox currently, if needed to decide on fdc AC plan consider Hematology evaluation -pain controlled adequately -pulmonary following
--- NOTE | 2017-07-02 16:41 | PN ---
Progress Note (short form) - Note Progress Note: Patient is comfortable with no acute distress, daughter and the at bedside. No fever or chills. Vital Signs Temperature 98.9 F 07/02/17 14:00 Pulse Rate 70 07/02/17 14:00 Respiratory Rate 18 07/02/17 10:00 Blood Pressure 123/77 07/02/17 14:00 O2 Sat by Pulse Oximetry (%) 95 07/01/17 21:00 GENERAL: Awake, alert, and fully oriented, in no acute distress. HEAD: Normal with no signs of trauma. EYES: Pupils equal, round and reactive to light, extraocular movements intact, sclera anicteric, conjunctiva clear. EARS, NOSE, THROAT: Ears normal, oropharynx clear without exudates. Moist mucous membranes. NECK: Normal range of motion, supple without lymphadenopathy, JVD, or masses. LUNGS: Breath sounds equal, clear to auscultation bilaterally. No wheezes, and no crackles. No accessory muscle use. HEART: Regular rate and rhythm, normal S1 and S2 without murmur, rub or gallop. ABDOMEN: soft, nontender, normoactive bowel sounds, no guarding, no rebound, no masses. No hepatomegaly or splenomegaly. EXTREMITIES: 2+ pulses, warm, well-perfused. No cyanosis. No clubbing. No peripheral edema. NEUROLOGICAL: Cranial nerves II-XII intact. Normal speech. Normal gait. PSYCHIATRIC: Cooperative. Good eye contact. Appropriate mood and affect. SKIN: Warm, dry, normal turgor, no rashes or lesions noted, normal capillary refill. CBCD WBC 6.5 K/mm3 (4.0-10.0) 07/01/17 06:29 RBC 3.73 M/mm3 (4.00-5.60) L 07/01/17 06:29 Hgb 11.9 GM/dL (11.7-16.9) 07/01/17 06:29 Hct 34.5 % (35.4-49) L 07/01/17 06:29 MCV 92.5 fl (80-96) 07/01/17 06:29 MCHC 34.5 g/dl (32.0-35.9) 07/01/17 06:29 RDW 12.7 % (11.9-15.9) 07/01/17 06:29 Plt Count 157 K/MM3 (134-434) 07/01/17 06:29 MPV 8.3 fl (7.5-11.1) 07/01/17 06:29 CMP Sodium 138 mmol/L (136-145) 07/01/17 06:29 Potassium 4.6 mmol/L (3.5-5.1) D 07/01/17 06:29 Chloride 105 mmol/L (98-107) D 07/01/17 06:29 Carbon Dioxide 26 mmol/L (21-32) D 07/01/17 06:29 Anion Gap 7 (8-16) L 07/01/17 06:29 BUN 20 mg/dL (7-18) H 07/01/17 06:29 Creatinine 0.7 mg/dL (0.7-1.3) D 07/01/17 06:29 Creat Clearance w eGFR > 60 (>60) 06/30/17 19:05 Random Glucose 93 mg/dL (74-106) D 07/01/17 06:29 Calcium 8.6 mg/dL (8.5-10.1) D 07/01/17 06:29 Total Bilirubin 0.5 mg/dL (0.2-1.0) 06/30/17 19:05 AST 20 U/L (15-37) 06/30/17 19:05 ALT 19 U/L (12-78) D 06/30/17 19:05 Alkaline Phosphatase 54 U/L (45-117) D 06/30/17 19:05 Total Protein 4.8 g/dl (6.4-8.2) L D 06/30/17 19:05 Albumin 2.4 g/dl (3.4-5.0) L D 06/30/17 19:05 CARDIAC ENZYMES Creatine Kinase 55 IU/L (39-308) 06/30/17 19:05 Troponin I < 0.02 ng/ml (0.00-0.05) 06/30/17 19:05 Current Medications Generic Name Dose Route Start Last Admin Trade Name Freq PRN Reason Stop Dose Admin Enoxaparin Sodium 70 mg 07/01/17 10:00 07/02/17 09:30 Lovenox - SQ 70 mg BID JUSTICE Administration Levofloxacin 500 mg 07/01/17 14:30 07/02/17 06:18 Levaquin - PO 500 mg DAILY@0600 JUSTICE Administration Morphine Sulfate 2 mg 07/01/17 09:33 07/01/17 16:32 Morphine Injection - IVPUSH 2 mg Q3H PRN Administration PAIN LEVEL 7 - 10 Home Medications Medication Instructions Recorded No Home Medications 0 dose .ROUTE UTDICT 01/29/12 Acetaminophen [Tylenol .Regular 650 mg PO Q4H PRN #0 tablet 01/30/12 Strength -] Ciprofloxacin [Cipro (Restricted 500 mg PO Q12H 07/01/17 To Id)] Tadalafil [Cialis] 5 mg PO DAILY 07/01/17 CTA (admission, 06/30): A subsegmental embolus is seen within the medial basal segment of the right lower lobe. Bibasilar opacities are noted which may be on the basis of atelectasis and/or infiltrates. 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 CT head (06/30): There is no obvious CT evidence of neoplastic disease. If there is ongoing clinical concern additional evaluation utilizing MRI or CT may performed ( without and with contrast). Lower Extremity Doppler: no acute DVT ASSESSMENT/PLAN: Patient is a 72 year old male with a past medical history of prostate CA s/p prostatectomy presented to the hospital with acute pleuretic chest pain and was found to have pulmonary embolus. #Acute Pulmonary Embolism most likely provoked due to prostate CA: on Lovenox 70mg Bid continue #Acute hypernatremia: improved from 148--138 #Acute Hypokalemia now Potassium on a high sided will monitor #Hx of Prostate CA #DVT Px: lovenox Visit type - Emergency Visit Emergency Visit: Yes ED Registration Date: 06/30/17 Care time: The patient presented to the Emergency Department on the above date and was hospitalized for further evaluation of their emergent condition. - New Patient This patient is new to me today: No - Critical Care Critical Care patient: No
--- NOTE | 2017-07-03 08:18 | PN ---
Progress Note (short form) - Note Progress Note: Weekend coverage appreciated. spoke to Sabina-daughter today on the phone. Patient seen today and examined. 72 y.o M underwent prosatectomy for CA 2 weeks [employer]. He presented06/30/17 to the ER with pleuritic right sided chest pain/ The work up was significant for right subsegmental PE. LE venous Dupplex was negative The patient was started on Lovenox VID Pulmonary and cardiology consults calledToday comfortable, no pain, no SOB. Last Vital Signs Temp Pulse Resp BP Pulse Ox 98.7 F 71 18 121/54 98 07/03/17 06:00 07/03/17 06:00 07/03/17 06:00 07/03/17 06:00 07/02/17 20:40 Neck-no JVD, no bruts Lungs are clear Heart S1S2 regular Abdomen soft , NT Scar post splenectomy many years ago Ext-no CCE Neur-A&Ox3, huma motor, S L=r Current Active Problems Problem Status Onset Atelectasis of both lungs Acute Prostate CA Acute Pulmonary embolism Pancreativ cyst portal vein thrombosis Acute . Plan According to study NEGM 2017 Apr 25. Jasmina et al. NOAC agent is non-inferior to Lovenox in patients with active cancer and PE/DVT. (the patient does not have active CA) The patient has a provoked PE post prostate surgery. Would benefit from oral NOAC .Would D/c Lovenox and start Eliquis 10 mg PO BID x7 days and 5 mg BID x6 mo Would follow abnormal MRI as outpatient.ECHO pending
[2017-07-03] MEDS ORDERED: PT OWN MED DRAWER 7, Y5N ONE (09:33)
[2017-07-03] MEDS ORDERED: APIXABAN 5 MG TABLET PO SCH (10:00)
--- NOTE | 2017-07-03 11:02 | PN ---
Progress Note, Physician History of Present Illness: PULMONARY ALERT,FEELING BETTER,LESS CP,-SOB,O2 SAT 97% ON RA - Current Medication List Current Medications: Active Medications Apixaban (Eliquis -) 10 mg PO BID [facility] Stop: 07/10/17 23:00 Last Admin: 07/03/17 10:11 Dose: 10 mg Apixaban (Eliquis -) 5 mg PO BID [facility] Levofloxacin (Levaquin -) 500 mg PO DAILY@0600 [facility] Last Admin: 07/03/17 05:30 Dose: 500 mg Morphine Sulfate (Morphine Injection -) 2 mg IVPUSH Q3H PRN PRN Reason: PAIN LEVEL 7 - 10 Last Admin: 07/01/17 16:32 Dose: 2 mg - Objective Vital Signs: Vital Signs Temperature 98.7 F 07/03/17 06:00 Pulse Rate 71 07/03/17 06:00 Respiratory Rate 18 07/03/17 06:00 Blood Pressure 121/54 07/03/17 06:00 O2 Sat by Pulse Oximetry (%) 98 07/02/17 20:40 Constitutional: Yes: Well Nourished, Calm Eyes: Yes: WNL HENT: Yes: WNL Neck: Yes: WNL Cardiovascular: Yes: Regular Rate and Rhythm, S1 Respiratory: Yes: CTA Bilaterally Gastrointestinal: Yes: Normal Bowel Sounds, Soft Extremities: Yes: WNL Edema: No Labs: CBC, BMP Assessment/Plan Problem List - Problems (1) Pulmonary embolism Code(s): I26.99 - OTHER PULMONARY EMBOLISM WITHOUT ACUTE COR PULMONALE Qualifiers: Pulmonary embolism type: other Chronicity: acute Acute cor pulmonale presence: without acute cor pulmonale Qualified Code(s): I26.99 - Other pulmonary embolism without acute cor pulmonale (2) Prostate CA Code(s): C61 - MALIGNANT NEOPLASM OF PROSTATE (3) Atelectasis of both lungs Code(s): J98.11 - ATELECTASIS Assessment/Plan Lovenox BID Incentive Spirometry O2 as needed ECHO DR DAI Problem List - Problems (1) Pulmonary embolism Code(s): I26.99 - OTHER PULMONARY EMBOLISM WITHOUT ACUTE COR PULMONALE Qualifiers: Pulmonary embolism type: other Chronicity: acute Acute cor pulmonale presence: without acute cor pulmonale Qualified Code(s): I26.99 - Other pulmonary embolism without acute cor pulmonale (2) Prostate CA Code(s): C61 - MALIGNANT NEOPLASM OF PROSTATE (3) Atelectasis of both lungs Code(s): J98.11 - ATELECTASIS
[2017-07-03 14:54] VITALS: BP 109/67; PULSE 70; TEMP 98.7
--- NOTE | 2017-07-03 15:13 | PN ---
Progress Note, Physician History of Present Illness: seen and examined today in no acute distress, no new complaints, no overnight events - Current Medication List Current Medications: Active Medications Apixaban (Eliquis -) 10 mg PO BID [facility] Stop: 07/10/17 23:00 Last Admin: 07/03/17 10:11 Dose: 10 mg Apixaban (Eliquis -) 5 mg PO BID [facility] Levofloxacin (Levaquin -) 500 mg PO DAILY@0600 [facility] Last Admin: 07/03/17 05:30 Dose: 500 mg Morphine Sulfate (Morphine Injection -) 2 mg IVPUSH Q3H PRN PRN Reason: PAIN LEVEL 7 - 10 Last Admin: 07/01/17 16:32 Dose: 2 mg - Objective Vital Signs: Vital Signs Temperature 98.7 F 07/03/17 14:00 Pulse Rate 70 07/03/17 14:00 Respiratory Rate 20 07/03/17 14:00 Blood Pressure 109/67 07/03/17 14:00 O2 Sat by Pulse Oximetry (%) 97 07/03/17 09:00 Constitutional: Yes: Well Nourished, No Distress, Calm Eyes: Yes: WNL, Conjunctiva Clear, EOM Intact, PERRL HENT: Yes: WNL, Atraumatic, Normocephalic Neck: Yes: WNL, Supple, Trachea Midline Cardiovascular: Yes: WNL, Regular Rate and Rhythm, S1, S2. No: Bradycardia, Tachycardia, Pulse Irregular, Bruit, JVD, Gallop, Murmur, Rub, S3, S4, Varicosities Respiratory: Yes: WNL, Regular, CTA Bilaterally. No: Rales, Rhonchi, Wheezes Gastrointestinal: Yes: WNL, Normal Bowel Sounds, Soft. No: Distention, Tenderness Musculoskeletal: Yes: WNL Extremities: Yes: WNL Edema: No Peripheral Pulses WNL: Yes Peripheral Pulses: Left Doralis Pedis: 2+, Right Dorsalis Pedis: 2+ Integumentary: Yes: WNL Neurological: Yes: WNL, Alert, Oriented, Cran Nerves II-XII Intact ...Motor Strength: WNL Psychiatric: Yes: WNL, Alert, Oriented Labs: CBC, BMP 07/01/17 06:29 07/01/17 06:29 - ....Imaging Chest X-ray: Report Reviewed, Image Reviewed EKG: Report Reviewed, Image Reviewed Other: Report Reviewed, Image Reviewed (telemetrynormal sinus rhythm and APCs no signt arrhythmias recorded) Assessment/Plan 72 year old man with a h/o prostate Ca s/p prostatectomy 2 weeks ago admitted with pleuritic R sided back and chest pain with associated difficulty taking deep breaths since yesterday and found to have a R sided pulmonary embolism. Pulmonary embolism-in setting of prostate Ca-R sided subsegmental -remains hemodynamically stable, no arrhythmias on tele -ok to dc tele at this point -follow-up echo to confirm no RV dilatation or dysfunction -Lovenox changed to Eliquis going forward -pain controlled adequately -pulmonary following -if echo shows no RV dysfunction patient would be acceptable from a cardiac standpoint for discharge home with outpatient follow-up
--- NOTE | 2017-07-03 17:52 | DS ---
Physical Examination Vital Signs: Vital Signs Temperature 98.7 F 07/03/17 14:00 Pulse Rate 70 07/03/17 14:00 Respiratory Rate 20 07/03/17 14:00 Blood Pressure 109/67 07/03/17 14:00 O2 Sat by Pulse Oximetry (%) 97 07/03/17 09:00 Constitutional: Yes: No Distress, Calm Eyes: Yes: Conjunctiva Clear, EOM Intact HENT: Yes: Atraumatic, Normocephalic Neck: Yes: Supple, Trachea Midline Cardiovascular: Yes: Regular Rate and Rhythm Respiratory: Yes: Regular, CTA Bilaterally Gastrointestinal: Yes: Normal Bowel Sounds, Soft ...Rectal Exam: Yes: Deferred Renal/: Yes: WNL Breast(s): Yes: WNL Integumentary: Yes: WNL ...Motor Strength: WNL Psychiatric: Yes: WNL Labs: CBC, BMP 07/01/17 06:29 07/01/17 06:29 Discharge Summary Reason For Visit: PULMONARY EMBOLISM Current Active Problems Atelectasis of both lungs (Acute) Prostate CA (Acute) Pulmonary embolism (Acute) Condition: Guarded - Instructions Referrals: Nahum Khan MD [Primary Care Provider] - Disposition: HOME - Home Medications Comprehensive Discharge Medication List: Ambulatory Orders No Home Medications 0 dose .ROUTE UTDICT 01/29/12 Acetaminophen [Tylenol .Regular Strength -] 650 mg PO Q4H PRN #0 tablet Ciprofloxacin [Cipro -] 500 mg PO Q12H 07/01/17 Tadalafil [Cialis] 5 mg PO DAILY 07/01/17 Apixaban [Eliquis -] 5 mg PO BID tablet 07/03/17 Apixaban [Eliquis -] 5 mg PO BID #60 tablet 07/03/17
[2017-07-11] MEDS ORDERED: APIXABAN 5 MG TABLET PO SCH (10:00)
== END 2017-07-03 18:55 | disposition home or self-care (01) | DRG 176 ==
LOC: JER 17:41 → JERBED 22:39 → J4W 07-01 11:09
PROVIDERS: ADMIT Internal Medicine; ATTEND Internal Medicine
DX: I26.99 Other pulmonary embolism without acute cor pulmonale (principal); E87.0 Hyperosmolality and hypernatremia; J98.11 Atelectasis; E87.6 Hypokalemia; E83.51 Hypocalcemia; Z85.46 Personal history of malignant neoplasm of prostate; R07.9 Chest pain, unspecified
CPT/HCPCS: 36415; 70450-TC; 71046-TC-FY; 71275-TC; 80048; 80053; 81003; 81015; 82550; 83690; 83735; 84100; 84484; 85025; 93005; 93010; 93306-TC; 93970-TC; 94010; 99285-25

== ENCOUNTER 2020-02-14 04:49 | Day surgery (SDC) | payer OTHER, BC ==
[2020-02-12 14:45] VITALS: BMI 27.4
--- NOTE | 2020-02-14 10:29 | HP ---
History & Physical Update - History History: No Change - Physical Physical: No Change - Assessment Assessment: No Change - Plan Plan: No Change
[2020-02-14] MEDS ORDERED: ONDANSETRON 4 MG/2 ML VIAL IVPUSH PRN (10:58)
[2020-02-14] MEDS ORDERED: oxyCODONE HCL 5 MG TABLET PO PRN (10:58)
[2020-02-14] MEDS ORDERED: LACTATED RINGERS SOLUTION 1,000 ML IV SCH (11:00)
[2020-02-14] MEDS ORDERED: LIDOCAINE HCL 1% EPINEPHRINE 1:200,000 30 ML VIAL (PF) ONE (11:15)
[2020-02-14] MEDS ORDERED: ceFAZolin SODIUM 1 GM VIAL ONE (11:28)
[2020-02-14] MEDS ORDERED: ceFAZolin SODIUM 1 GM VIAL IVPB ONE (11:33)
[2020-02-14] MEDS ORDERED: LIDO 2%/EPI 1:200000 PRESRVFRE (20 ML SDVIAL) INF ONE ×2 (11:33)
--- NOTE | 2020-02-14 12:09 | OP ---
Operative Note - Note: Operative Date: 02/14/20 Pre-Operative Diagnosis: right elbow mass Operation: Excsion biopsy right elbow mass Findings: 2 cm cystic mass Post-Operative Diagnosis: Same as Pre-op Surgeon: Jesus Pedroza Anesthesia: Local, MAC Specimens Removed: cystic mass Operative Report Dictated: Yes
[2020-02-14 12:59] VITALS: BP 131/75
[2020-02-14 13:45] VITALS: PULSE 79; TEMP 98.2
--- NOTE | 2020-02-14 18:56 | OP ---
DATE OF OPERATION: 02/14/2020 PROCEDURE: Excision biopsy of right elbow mass. PREOPERATIVE DIAGNOSIS: Right elbow mass. POSTOPERATIVE DIAGNOSIS: Right elbow mass. SURGEON: Jesus Pedroza MD. ANESTHESIA: Local with sedation. FINDINGS AND PROCEDURE: This is a 74-year-old male presents with 2-year history of slowly growing mass of the right elbow. It is soft, moveable, with well-defined borders. Mass is about 2.5 cm in its widest diameter. So patient advised elective excision of the mass and consent was obtained after discussing the risks, benefits, and alternatives to the procedure. Patient was brought to the operating room and placed in supine position. The right elbow was abducted towards the chest. The operative site was prepped and draped in the usual sterile fashion. Using lidocaine 1% with epinephrine, field block anesthesia was administered. Patient was also given intravenous sedation by the anesthesia team. A 2-cm elliptical incision was made over the mass using scalpel blade number 15 with dissection carried down to the dermis, further dissection using Metzenbaum scissors was done until the cystic mass was completely excised down to the periostial layer. Afterwards, the wound was closed with interrupted Polysorb 3-0 suture of the dermis, and continuos Biosyn 4-0 suture for the subcuticular layer. The wound closure was reinforced with Steri-Strips and covered with sterile dressing. Patient was successfully then transferred to the ambulatory surgery unit in satisfactory condition. Estimated blood loss was about 1 mL, wound class clean. The patient received 1 g Ancef prior to the start of the procedure. Chelsea [id number] MTDD
--- NOTE | 2020-02-17 15:59 | PATH ---
Surgical Pathology Report Patient Name: ALLYSSA VACA Med. Rec. #: [id number] /Age/Gender: 1945 (Age: 74) / M Account: [id number] Location: [facility] SURGICAL Taken: 02/14/2020 Received: 02/14/2020 Reported: 02/17/2020 Physicians: Jesus Pedroza M.D. Specimen(s) Received RIGHT ELBOW SOFT TISSUE MASS Clinical History Right elbow soft tissue mass Final Diagnosis ELBOW, RIGHT, SOFT TISSUE MASS, EXCISION: EPIDERMAL INCLUSION CYST. Electronically Signed Violeta Roman M.D. Gross Description Received in formalin labeled "right elbow soft tissue mass," is a 1.5 x 1.3 x 1.0 cm he, intact cystic structure. The lumen contains he sebaceous material. The specimen is sectioned and market survey representative sections are submitted in one cassette. DL/02/14/2020 saudi/02/14/2020
== END 2020-02-14 13:20 | disposition home or self-care (01) ==
LOC: JASU-SURG 04:49
PROVIDERS: ATTEND Surgery
PROC: 0JBD0ZZ Excision of Right Upper Arm Subcutaneous Tissue and Fascia, Open Approach (ICD-10-PCS; principal; 2020-02-14 10:30)
DX: L72.0 Epidermal cyst (principal)
CPT/HCPCS: 88304-TC

== ENCOUNTER 2021-04-20 10:03 | Inpatient (IN) | payer OTHER, BC ==
[2021-04-19 13:29] VITALS: BMI 26.5
[2021-04-21 09:55] LABS: HEMATOCRIT 38.2 % (35.4-49); HEMOGLOBIN 13.3 GM/dL (11.7-16.9); MCH 33.3 pg (25.7-33.7); MEAN CELL VOLUME 95.2 fl (80-96); MEAN PLT VOLUME 9.3 fl (7.5-11.1); PLATELET COUNT 153 10^3/uL (134-434); RBC 4.01 M/mm3 (4.00-5.60); WHITE BLOOD COUNT 9.6 K/mm3 (4.0-10.0)
[2021-04-21 14:27] VITALS: BP 128/64; PULSE 84; TEMP 97.4
== END 2021-04-21 16:45 | disposition home health service (06) | DRG 470 ==
LOC: FM/S 10:03
PROVIDERS: ADMIT Orthopaedic Surgery; ATTEND Orthopaedic Surgery
PROC: 0SRD0JA Replacement of Left Knee Joint with Synthetic Substitute, Uncemented, Open Approach (ICD-10-PCS; principal; 2021-04-20)
PROC: 8E0Y0CZ Robotic Assisted Procedure of Lower Extremity, Open Approach (ICD-10-PCS; 2021-04-20)
DX: M17.12 Unilateral primary osteoarthritis, left knee (principal); C61 Malignant neoplasm of prostate
CPT/HCPCS: 36415; 73560-TC-LT-FY; 85027; 94760; 97010-GP; 97116-GP; 97163-GP; J0131